=== PATIENT | male | born 1955 | race Caucasian/White ===

== ENCOUNTER 2021-03-10 16:02 | Emergency (ER) | payer SELFPAY ==
[~2021-03-10] VITALS: Ht 180.3 cm; Wt 106.5 kg
[2021-03-10 16:05] VITALS: BP 189/98
[2021-03-10] MEDS ORDERED: DOXYCYCLINE 100MG CAPSULE PO STA (17:26)
[2021-03-10] MEDS ORDERED: amoxicillin 250mg capsule PO ONE (17:30)
[2021-03-10] MEDS ORDERED: DOXY100C76 PO (17:32)
[2021-03-10] MEDS ORDERED: AMOX-100 PO (17:32)
== END 2021-03-10 18:04 | disposition home or self-care (01) ==
LOC: ER 16:02
DX: L03.113 Cellulitis of right upper limb (principal); M79.601 Pain in right arm; Z88.5 Allergy status to narcotic agent; Z88.8 Allergy status to other drugs, medicaments and biological substances; Z79.2 Long term (current) use of antibiotics
CPT/HCPCS: 99283

== ENCOUNTER 2025-05-20 04:37 | Emergency (ER) | payer BC, MEDICARE ==
[~2025-05-20] VITALS: Ht 175.3 cm; Wt 107.3 kg
--- NOTE | 2025-05-20 05:23 | Physician Documentation ---
History of Present Illness ~ Chief Complaint: Leg Pain Stated Complaint: LEFT HIP PAIN Time Seen by MD: 05:22 Primary Medical Doctor: HPI Patient presents to the emergency room with continued back and sciatic pain. He had an injection performed one-week ago that has not had any improvement. He is awaiting for MRI approval. History of kidney disease limiting patient's NSAID intake. Denies any bladder or bowel incontinence. Tetanus witin 5 years: No Medication Reconciliation Allergies: Coded Allergies: ceftriaxone (Unverified Allergy, Severe, RASH, 03/10/21) furosemide (Unverified Allergy, Mild, RASH, 03/10/21) ketorolac (Verified Allergy, Unknown, 05/20/25) morphine (Unverified Allergy, Unknown, APNIC, 03/10/21) Scheduled PRN Hydrocodone Bit/Acetaminophen (Hydrocodone-Apap 10-325 Tablet), 1 TABLET PO Q4H PRN for pain Miscellaneous Medications [norco] Past Medical History Past Medical History: Kidney Transplant Past Surgical History: noncontributory Alcohol Use: None Drug Use: none Review of Systems ROS All review of systems negative except as per HPI Physical Exam Vital Signs: Temperature: 97.7, Heart Rate: 77, Respiratory Rate: 16, BP: 152/96, Pulse Oximetry: 95, Weight: 107.270 Oxygen Flow Rate: 0 Physical Exam General: Patient is awake, alert, oriented x4 in no acute distress Head: Normocephalic and atraumatic. Eyes: Conjunctival normal. EOMI. PERRL. ENT: Mucous membranes moist. Neck: Supple, trachea is midline. Chest: Clear to auscultation bilaterally without rales, rhonchi, or wheezes. There is no accessory muscle use or retractions. Cardiac: RRR without murmurs, gallops, or rubs. Back: No midline spinal or CVA tenderness. Progress Results/Orders Results/Orders Orders - TIMMY GRULLON MD Mri Lumbar Spine (05/20/25 11:15) Completed Orders - TIMMY GRULLON MD Acetaminophen 325mg Tablet (Tylenol Tabl (05/20/25 05:30) Ondansetron Disint. Tablet (Zofran Odt T (05/20/25 05:30) Urinalysis, Cult If Indicated (05/20/25 05:30) Mri Lumbar Spine (05/20/25 11:15) Vital Signs 05/20/25 05/20/25 05/20/25 05/20/25 04:40 04:58 05:47 06:30 Temp 97.7 Pulse 74 77 80 65 Resp 16 16 16 17 B/P (MAP) 118/73 152/96 (114) 119/74 (89) 144/93 (110) Pulse Ox 97 95 94 93 O2 Flow Rate 0 0 0 0 05/20/25 05/20/25 05/20/25 05/20/25 06:40 07:27 07:30 07:43 Pulse 74 Resp 16 16 16 16 B/P (MAP) 155/103 (120) Pulse Ox 94 O2 Flow Rate 0 05/20/25 05/20/25 05/20/25 05/20/25 08:07 08:30 09:30 10:30 Pulse 71 70 71 Resp 15 15 14 15 B/P (MAP) 130/76 (94) 141/86 (104) Pulse Ox 94 94 93 O2 Flow Rate 0 0 0 05/20/25 05/20/25 05/20/25 10:32 11:20 13:11 Temp 98.0 Pulse 73 72 Resp 18 15 16 B/P (MAP) 140/78 Pulse Ox 94 94 O2 Flow Rate 0 Laboratory Tests Test 05/20/25 10:32 Urine Specimen Description Urinal Urine Color Yellow Urine Clarity Clear Urine pH 5.5 Urine Specific [place] 1.020 Urine Protein Negative Urine Glucose (UA) Negative Urine Ketones Negative Urine Occult Blood Negative Urine Nitrite Negative Urine Bilirubin Negative Urine Urobilinogen 0.2 Urine Leukocyte Esterase Negative Urine Culture Indicated Not ind Volume Urine Centrifuged 10 ml Urine Comment Departure Disposition: 01 HOME / SELF CARE / HOMELESS Impression: Primary Impression: Sciatica Condition: Stable Additional Instructions: Please follow-up with Dr. De Jesus at [facility]. Referrals: NO PRIMARY CARE PROVIDER (PCP) Prescriptions Hydrocodone Bit/Acetaminophen (Hydrocodone-Apap 10-325 Tablet) 10mg/325mg Tablet 1 TABLET PO Q4H PRN for pain, #20 TABLET Prov: ROSAURA BRUNO MD 05/20/25 [norco] No Conflict Check Prov: ROSAURA BRUNO MD 05/20/25 Signature Scribe Signature: . Attestation: The note accurately reflects work and decisions made by me.Timmy Grullon MD 05/20/25 20:19 . Addendum Received patient in sign out from outgoing ED physician, Dr. Grullon. Please see their note (and other providers) for further specific details regarding initial encounter. HPI/Course In Brief: This patient is a 69-year-old male with the following history: Diagnosed with left-sided renal cell carcinoma in 2000 and underwent left nephrectomy. Diagnosed with right-sided renal cell carcinoma in 2007 and underwent right nephrectomy. The patient was on dialysis until February 2015 when he got a kidney transplant. Three weeks ago he leaped out of bed when he heard his dog was in distress and some how twisted his back and hip and has had severe low back and left hip pain since then. He saw Dr. De Jesus at [facility] and this past Sunday got a steroid injection which has not helped very much. He was awaiting approval for outpatient MRI. ED COURSE: The patient has received acetaminophen and Zofran in the department which has not helped. Discussed harm reduction to this emergency department visit today. Patient expresses understanding and agrees to plan. All questions answered to the best of my ability. Discharged in stable condition with strict ED return precautions and close outpatient follow-up with Dr. De Jesus at [facility]. EMR and Dragon Attestation - this medical document was created using an electronic medical record system with [employer] computerized dictation system. Although this document has been carefully reviewed, there may still be some phonetic and typographical errors. These errors are purely typographical, due to imperfections of the software programs, and do not reflect any compromise in the patient's medical care. Note to Patients: Physician notes are written for the purpose of communication between medical providers and billing purposes. There may be aspects of this documentation that are simplified for efficiency and clarity. Physician notes are not intended to capture the entirety of your experience in the hospital. If you have questions about the way your medical condition and care was documented, please do not hesitate to bring this up at your next visit with your physician. TIMMY GRULLON MD May 20, 2025 05:23 ROSAURA BRUNO MD May 20, 2025 06:43
[2025-05-20] MEDS: ondansetron 4mg rapidly disintigrating tab PO ONE (05:45)
[2025-05-20] MEDS ORDERED: HYDROmorphone inj. 0.5 MG/0.5 ML DISP.SYRIN IV ONE (06:45)
[2025-05-20 11:42] LABS: LEUKOCYTE ESTERASE ,URINE NEGATIVE (Neg); NITRITES, URINE NEGATIVE (Neg); OCCULT BLOOD,URINE NEGATIVE (Neg)
[2025-05-20 12:21] LABS: UA COLLECTION TYPE URINAL
--- NOTE | 2025-05-20 12:22 | RADIOLOGY REPORT ---
EXAM: MR MRI LUMBAR SPINE CLINICAL HISTORY: back pain COMPARISON: MR MRI PELVIS on DOS: 05/20/25 TECHNIQUE: MRI imaging of the lumbar was performed on a MRI imaging system without intravenous contrast. FINDINGS GENERAL Multilevel disc degeneration. Alignment: No spondylolisthesis identified. Vertebrae: Vertebral body height is well maintained without evidence of a recent compression fracture. Conus: Conus medullaris terminates at the L1 level. T12-L1: Disc desiccation. No spinal canal or neural foraminal stenosis. Facet arthrosis. L1-2: Disc desiccation. No spinal canal or neural foraminal stenosis. Facet arthrosis. L2-3: Disc desiccation and 5.8 mm disc bulge. Mild disc height loss. Mild spinal canal stenosis. Moderate bilateral subarticular zone stenosis. Moderate left and severe right foraminal stenosis with potential right exiting L2 nerve root compression. Facet arthrosis. L3-4: Disc desiccation and 6.1 mm disc bulge. Moderate spinal canal stenosis. Moderate bilateral subarticular zone stenosis. Mild right and severe left foraminal stenosis with potential left exiting L3 nerve root compression from bulge. Facet arthrosis. L4-5: Disc desiccation and 5.3 mm disc bulge. Moderate disc height loss. Mild spinal canal stenosis. Mild right and moderate left subarticular zone stenosis. Mild left and severe right foraminal stenosis with potential right exiting L4 nerve root compression. Facet arthrosis. L5-S1: Disc desiccation. Disc bulge with superimposed central disc extrusion measured 8.25 mm in radial dimension. Mild left subarticular zone stenosis. Mild left foraminal stenosis. Facet arthrosis. IMPRESSION: 1. Multilevel disc degeneration. Multilevel spinal canal stenosis, most pronounced and moderate at L3-L4. Multilevel subarticular zone stenosis, most pronounced and moderate at L4-L5. Multilevel foraminal stenosis, most pronounced and severe at L4-L5 with potential right exiting L4 nerve root compression.
--- NOTE | 2025-05-20 12:46 | RADIOLOGY REPORT ---
EXAM: MR MRI PELVIS INDICATION: Continued pain of low back and left hip, 3-week-old injury TECHNIQUE: Multiplanar, multisequence imaging of the pelvis without contrast COMPARISON: None FINDINGS: [BONES]: No fracture, osseous contusion, avascular necrosis of the hips, or aggressive osseous lesion. [MUSCLES]: Asymmetric edema along the anterior fibers of the gluteus minimus which may be compatible with muscle strain (5- 23). [TENDONS]: Tendinosis of bilateral hamstring tendon origins [JOINT SPACES]: No hip joint effusion [NEUROVASCULAR]: Visualized sciatic nerves are normal without evidence of a subjacent mass lesion or abnormal intrinsic T2 hyperintensity. The visualized sacral nerve roots are normal with normal appearing surround fat planes without an adjacent mass lesion. [OTHER]: There is no trochanteric or iliopsoas bursal collection. Right lower quadrant kidney transplant with prominent incompletely characterized right-sided cystic change without definitive hydronephrosis. No visualized lymphadenopathy. Partially visualized lumbosacral spine is unremarkable. IMPRESSION: 1. No acute osseous abnormality. 2. Asymmetric edema along the anterior fibers of the gluteus minimus which may be compatible with muscle strain. 3. Tendinosis of bilateral hamstring tendon origins. 4. Right lower quadrant kidney transplant with prominent incompletely characterized right-sided cystic change without definitive hydronephrosis.
[2025-05-20 13:11] VITALS: BP 140/78; PULSE 72; RESP 16; TEMP 98; O2SAT 94
[2025-05-20] MEDS ORDERED: HYDR-3973 PO (14:06)
[2025-05-20] MEDS ORDERED: norco (14:06)
== END 2025-05-20 13:12 | disposition home or self-care (01) ==
LOC: ER 04:37
DX: M54.40 Lumbago with sciatica, unspecified side (principal); M25.552 Pain in left hip; Z85.528 Personal history of other malignant neoplasm of kidney; Z88.1 Allergy status to other antibiotic agents; Z88.5 Allergy status to narcotic agent
CPT/HCPCS: 72148; 72195; 81003; 96372; 99285; J1171

== ENCOUNTER 2025-05-27 23:10 | Emergency (ER) | payer BC, MEDICARE ==
[~2025-05-27] VITALS: Ht 175.3 cm; Wt 97.7 kg
[~2025-05-27 23:10] MED LIST: HYDR-3973 PO; norco
--- NOTE | 2025-05-28 00:24 | Physician Documentation ---
History of Present Illness ~ Chief Complaint: Back Pain Stated Complaint: EXTREME PAIN Time Seen by MD: 00:12 Primary Medical Doctor: HPI Patient presents to the emergency room with continued left buttock pain. He was seen here by myself 1-2 weeks ago where an MRI was performed which showed no emergent findings but did show some inflammation. He had an injection in his spine a proximally one week prior to that has visit on the . No new injuries. He took Flexeril prior to coming. Not taken any Tylenol as it does not work. History of kidney disease Medication Reconciliation Allergies: Coded Allergies: ceftriaxone (Unverified Allergy, Severe, RASH, 05/27/25) furosemide (Unverified Allergy, Mild, RASH, 05/27/25) ketorolac (Verified Allergy, Unknown, 05/27/25) morphine (Unverified Allergy, Unknown, APNIC, 05/27/25) Scheduled PRN Hydrocodone Bit/Acetaminophen (Hydrocodone-Apap 10-325 Tablet), 1 TABLET PO Q4H PRN for pain Miscellaneous Medications [norco] Past Medical History Past Medical History: Kidney Transplant Past Surgical History: noncontributory Alcohol Use: None Drug Use: none Review of Systems ROS All review of systems negative except as per HPI Physical Exam Physical Exam Vital Signs: Temperature: 97.0, Source: Oral, Heart Rate: 74, Respiratory Rate: 18, BP: 121/89, Pulse Oximetry: 97, Weight: 97.700 Oxygen Flow Rate: 0 Physical Exam General: Patient is awake, alert, oriented x4 in mild distress Head: Normocephalic and atraumatic. Eyes: Conjunctival normal. EOMI. PERRL. ENT: Mucous membranes moist. Neck: Supple, trachea is midline. Chest: Clear to auscultation bilaterally without rales, rhonchi, or wheezes. There is no accessory muscle use or retractions. Cardiac: RRR without murmurs, gallops, or rubs. Extremities: Normal strength. Normal range of motion. No deformities or edema. Tenderness to palpation to left mid buttock Progress Results/Orders Results/Orders Vital Signs 05/27/25 23:13 Temp 97.0 Pulse 74 Resp 18 B/P (MAP) 121/89 Pulse Ox 97 O2 Flow Rate 0 Medical Decision Making Findings Patient presents to the emergency room with continued back/buttock pain. Differentials include but are not limited to fractures, dislocations, radiculopathy, soft tissue injury. Given workup performed previously and he had not feel repeat imaging is necessary. We will treat him acutely for pain. The need to follow up with his doctor in pain management physician discussed. Departure Disposition: HOME / SELF CARE / HOMELESS Impression: Primary Impression: Sciatica Condition: Stable Discharge Instructions: Sciatica Additional Instructions: Follow up with your pain specialist Referrals: NO PRIMARY CARE PROVIDER (PCP) Prescriptions Hydrocodone Bit/Acetaminophen 5/325 MG ([place] 5/325 MG) 5 Mg/325 Mg Tablet 1-2 TAB PO Q4-6 hours PRN for pain, #12 TAB Prov: TIMMY GRULLON MD 05/28/25 Signature Scribe Signature: No scribe Attestation: The note accurately reflects work and decisions made by me.Timmy Grullon MD 05/28/25 00:30 TIMMY GRULLON MD May 28, 2025 00:24
[2025-05-28] MEDS ORDERED: HYDR-3965 PO (00:31)
[2025-05-28] MEDS: HYDROcodone/acetaminophen 10/325mg tab PO ONE (01:39)
[2025-05-28] MEDS: orphenadrine citrate 60mg/2ml inj. IM ONE (01:40)
[2025-05-28 01:44] VITALS: BP 118/70; PULSE 80; RESP 16; TEMP 98.1; O2SAT 99
== END 2025-05-28 01:49 | disposition home or self-care (01) ==
LOC: ER 23:11
DX: M54.30 Sciatica, unspecified side (principal); Z88.1 Allergy status to other antibiotic agents; Z88.8 Allergy status to other drugs, medicaments and biological substances; Z88.5 Allergy status to narcotic agent
CPT/HCPCS: 96372; 99284; J2360

== ENCOUNTER 2025-07-08 11:16 | Outpatient (CLI) | payer BC, MEDICARE ==
[~2025-07-08 11:16] MED LIST changes: -HYDR-3973 PO
--- NOTE | 2025-07-08 12:07 | RADIOLOGY REPORT ---
EXAM: DI FOOT, COMPLETE (3VW MIN) CLINICAL INDICATION: FALL X 1WK TECHNIQUE: DI FOOT, COMPLETE (3VW MIN) Comparison: None FINDINGS/IMPRESSION: There is no evidence of acute fracture or dislocation. Nondisplaced fractures involving the distal 3rd and 4th metatarsals
== END 2025-07-08 23:59 | disposition home or self-care (01) ==
LOC: RAD 11:16
PROVIDERS: ATTEND Family Medicine
DX: S92.345A Nondisplaced fracture of fourth metatarsal bone, left foot, initial encounter for closed fracture (principal); S99.822A Other specified injuries of left foot, initial encounter; M79.672 Pain in left foot; X58.XXXA Exposure to other specified factors, initial encounter; Y93.89 Activity, other specified; Y92.89 Other specified places as the place of occurrence of the external cause; Y99.8 Other external cause status
CPT/HCPCS: 73630